=== PATIENT | female | born 1960 | race Caucasian/White ===

== ENCOUNTER 2017-08-07 11:20 | Emergency (ER) | payer MEDICAID ==
[2017-08-07 11:42] VITALS: BP 155/80
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
== END 2017-08-07 13:25 | disposition home or self-care (01) ==
LOC: JD.ED 11:20
DX: M50.90 Cervical disc disorder, unspecified, unspecified cervical region (principal); F32.9 Major depressive disorder, single episode, unspecified; F41.9 Anxiety disorder, unspecified; F43.10 Post-traumatic stress disorder, unspecified; Z87.891 Personal history of nicotine dependence; Z79.899 Other long term (current) drug therapy
CPT/HCPCS: 93005; 99284; 99284-25

== ENCOUNTER 2017-11-25 18:15 | Emergency (ER) | payer MEDICAID ==
[2017-11-25 18:23] VITALS: BP 135/77
[2017-11-25] MEDS ORDERED: HYDROmorphone 0.5 MG/0.5 ML SYRINGE IVPUSH ONE (18:41)
[2017-11-25] MEDS ORDERED: Sodium Chloride 0.9% 10 ML Syringe FLUSH PRN (18:41)
[2017-11-25] MEDS ORDERED: Sodium Chloride 0.9% 1,000 ML IV ONE (18:41)
[2017-11-25] MEDS ORDERED: Ondansetron 4 MG/2 ML SDV IVPUSH ONE (18:41)
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
--- NOTE | 2017-11-26 09:27 | CT ---
CT abdomen and pelvis Technique: Multiple axial sections were obtained from above the kidneys inferiorly through the pubic symphysis. Intravenous nor oral contrast not utilized. Study has been performed as a ureteral stone protocol. Comparison: No prior CT abdomen or pelvis exam is available. Findings: Mild scarring seen within the right kidney. Cortical calcification seen within the right kidney. Cortical calcification possibly nonobstructing stone is noted within the left kidney measuring 5 mm. No ureteral dilatation or ureteral stone is seen. Visualized lower portions of the noncontrast liver appear unremarkable. Increased density within the gallbladder is seen. Spleen appears within normal limits. Adrenal glands show no nodule. Pancreas is within normal limits. Aorta shows atherosclerotic change which continues into the iliac vessels. No retroperitoneal adenopathy is seen. Appendix is seen which is normal. No pelvic mass or adenopathy is seen. No free fluid or inflammatory change is seen. Bone window settings were reviewed which appear within normal limits for the patient's age. Small fat-containing umbilical hernia is noted. Impression: 1. Slight scarring within the right kidney with cortical calcification. Small 5 mm calcification either representing cortical calcification or nonobstructing stone within the left kidney. 2. No ureteral dilatation or ureteral stone is seen. 3. Increased density within the gallbladder either due to sludge or non-calcified gallstones. 4. Other incidental findings. Nothing acute is appreciated. Diagnostic code #2 I agree with preliminary report from [facility], finalized at 11/25/17, 9:17 PM Central Time
== END 2017-11-25 21:30 | disposition home or self-care (01) ==
LOC: JD.ED 18:15
DX: K52.9 Noninfective gastroenteritis and colitis, unspecified (principal); I10 Essential (primary) hypertension; F41.9 Anxiety disorder, unspecified; F32.9 Major depressive disorder, single episode, unspecified; Z79.899 Other long term (current) drug therapy
CPT/HCPCS: 74176; 96361; 96374; 96375; 99284; J1170; J2405; J7040; J7050

== ENCOUNTER 2022-06-03 23:58 | Observation (INO) | payer MEDICARE, MEDICAID ==
[2022-06-04] MEDS ORDERED: Tamsulosin 0.4 MG Cap.ER PO STA (00:14)
[2022-06-04] MEDS ORDERED: Ondansetron 4 MG/2 ML SDV IVPUSH ONE (00:14)
[2022-06-04] MEDS ORDERED: HYDROmorphone 1 MG/ML Syringe IVPUSH STA (00:14)
[2022-06-04] MEDS ORDERED: Ketorolac 15 MG/ML SDV IVPUSH ONE (00:17)
[2022-06-04] MEDS: Sodium Chloride 0.9% 1,000 ML IV SCH ×2 (00:25→17:48)
[2022-06-04] MEDS ORDERED: Sodium Chloride 0.9% 1,000 ML IV ONE (01:25)
[2022-06-04] MEDS ORDERED: cefTRIAXone 2 GM in Sodium Chloride 0.9% 100 ML IV ONE (01:28)
[2022-06-04] MEDS: HYDROmorphone 1 MG/ML Syringe IVPUSH PRN ×2 (03:12→08:34)
[2022-06-04] MEDS ORDERED: Aluminum Hydroxide/Magnesium Hydroxide/Simethicone Susp 30 ML Cup PO PRN (03:19)
[2022-06-04] MEDS ORDERED: Ondansetron 4 MG/2 ML SDV IVPUSH PRN (04:15)
[2022-06-04] MEDS: Dextrose 5%-0.9% NaCl 1,000 ML IV SCH ×2 (04:31→11:13)
[2022-06-04 06:04] LABS: ESTIMATED GFR 64 mL/min (>60)
[2022-06-04] MEDS ORDERED: diphenhydrAMINE 25 MG Cap PO ONE (08:00)
[2022-06-04] MEDS: Pantoprazole 40 MG Vial IVPUSH SCH ×2 (08:26→20:43)
[2022-06-04] MEDS: Enoxaparin 40 MG/0.4 ML Syringe SUBCUT SCH (08:26)
[2022-06-04] MEDS ORDERED: buPROPion 300 MG Tab.ER PO SCH (09:00)
[2022-06-04] MEDS: cefTRIAXone 1 GM in Sodium Chloride 0.9% 100 ML IV SCH (14:15)
[2022-06-04] MEDS ORDERED: Cyclobenzaprine 10 MG Tab PO PRN (14:35)
[2022-06-04] MEDS: Oxybutynin 5 MG Tab.ER PO SCH (14:51)
[2022-06-05] MEDS: Sodium Chloride 0.9% 1,000 ML IV SCH (01:50)
[2022-06-05] MEDS: cefTRIAXone 1 GM in Sodium Chloride 0.9% 100 ML IV SCH (01:51)
[2022-06-05] MEDS ORDERED: Acetaminophen 325 MG Tab PO PRN (02:08)
[2022-06-05] MEDS: Pantoprazole 40 MG Vial IVPUSH SCH (08:40)
[2022-06-05] MEDS: Oxybutynin 5 MG Tab.ER PO SCH (08:41)
[2022-06-05] MEDS: Enoxaparin 40 MG/0.4 ML Syringe SUBCUT SCH (08:41)
[2022-06-05] MEDS ORDERED: BUPROPION 300 MG PO SCH (09:00)
[2022-06-05] MEDS ORDERED: Lisinopril 20 MG Tab PO SCH (09:00)
[2022-06-05 09:27] VITALS: BP 153/88; PULSE 85
== END 2022-06-05 11:42 | disposition home or self-care (01) ==
LOC: JD.ED 23:58 → JD.MS 06-04 02:03
PROVIDERS: ADMIT Pediatrics; ATTEND Pediatrics
DX: N12 Tubulo-interstitial nephritis, not specified as acute or chronic (principal); N39.0 Urinary tract infection, site not specified; F41.9 Anxiety disorder, unspecified; F32.89 Other specified depressive episodes; F43.10 Post-traumatic stress disorder, unspecified; M54.2 Cervicalgia; M54.9 Dorsalgia, unspecified; G89.29 Other chronic pain; R10.9 Unspecified abdominal pain; K80.20 Calculus of gallbladder without cholecystitis without obstruction; I10 Essential (primary) hypertension; R11.2 Nausea with vomiting, unspecified; K57.30 Diverticulosis of large intestine without perforation or abscess without bleeding; K42.9 Umbilical hernia without obstruction or gangrene; K43.9 Ventral hernia without obstruction or gangrene; M47.819 Spondylosis without myelopathy or radiculopathy, site unspecified; Z79.899 Other long term (current) drug therapy; Z98.890 Other specified postprocedural states; Z87.891 Personal history of nicotine dependence; Z86.16 Personal history of COVID-19
CPT/HCPCS: 36415; 74176; 80048; 80053; 80076; 81001; 83735; 85007; 85025; 85027; 87086; 87088; 87186; 96361; 96365; 96375; 99285; A9270; C9113; J0696; J1170; J1650; J1885; J2405; J7030; J7042

== ENCOUNTER 2023-02-26 14:46 | Emergency (ER) | payer MEDICARE, MEDICAID ==
[2023-02-26] MEDS ORDERED: Ondansetron 4 MG/2 ML SDV IVPUSH ONE (14:58)
[2023-02-26] MEDS ORDERED: HYDROmorphone 0.5 MG/0.5 ML Syringe IVPUSH ONE (14:58)
[2023-02-26] MEDS ORDERED: Sodium Chloride 0.9% 1,000 ML IV SCH (15:00)
[2023-02-26 15:14] LABS: BASOPHILS ABSOLUTE AUTO 0.1 K/mm3 (0.0-0.2); BASOPHILS PERCENT AUTO 1.2 % (0.0-1.0); EOSINOPHILS ABSOLUTE AUTO 0.4 K/mm3 (0.0-0.4); EOSINOPHILS PERCENT AUTO 3.2 % (0.0-6.0); HEMATOCRIT 51.9 % (37.0-47.0); HEMOGLOBIN 17.1 gm/dl (12.0-16.0); IMMATURE GRAN ABSOLUTE AUTO 0.05 K/mm3 (0.00-0.05); IMMATURE GRAN PERCENT AUTO 0.4 % (0.0-0.4); LYMPHOCYTES ABSOLUTE AUTO 1.3 K/mm3 (1.0-4.8); LYMPHOCYTES PERCENT AUTO 10.7 % (24.0-44.0); MEAN CORPUSCULAR HEMOGLOBIN 30.1 pg (28.0-32.0); MEAN CORPUSCULAR HGB CONC 32.9 g/dl (32.0-36.0); MEAN CORPUSCULAR VOLUME 91.2 fl (83.0-99.0); MEAN PLATELET VOLUME 9.7 fl (9.4-12.3); MONOCYTES ABSOLUTE AUTO 0.7 K/mm3 (0.0-0.8); MONOCYTES PERCENT AUTO 5.9 % (0.0-8.0); NEUTROPHILS ABSOLUTE AUTO 9.5 K/mm3 (1.8-7.7); NEUTROPHILS PERCENT AUTO 78.6 % (41.0-71.0); PLATELET COUNT,PLT 630 K/mm3 (150-400); RED BLOOD CELL COUNT 5.69 M/mm3 (4.10-5.30); WHITE BLOOD CELL COUNT,WBC 12.11 K/mm3 (3.9-11.3)
[2023-02-26 15:36] LABS: A/G RATIO 1.6 (1-2); ALBUMIN 4.8 g/dl (3.4-5.0); ANION GAP 14.8 (5-15); BILIRUBIN TOTAL 0.4 mg/dL (0.2-1.0); CREATININE 1.2 mg/dL (0.55-1.02); EST CRCL DRUG DOSING (CG) 41.44 mL/min; POTASSIUM,K 3.8 mEq/L (3.5-5.1); PROTEIN TOTAL,TP 7.9 g/dl (6.4-8.2)
[2023-02-26 15:45] LABS: CALCIUM 9.5 mg/dL (8.5-10.1)
[2023-02-26 16:39] LABS: APPEARANCE,URINE SLT CLOUDY (Clear); BILIRUBIN,URINE NEGATIVE (Negative); COLOR,URINE YELLOW (Yellow); GLUCOSE,URINE NEGATIVE (Negative); KETONES,URINE TRACE (Negative); LEUKOCYTE ESTERASE,URINE 1+ (Negative); NITRITE,URINE POSITIVE (Negative); OCCULT BLOOD,URINE NEGATIVE (Negative); PROTEIN,URINE NEGATIVE (Negative); UROBILINOGEN,URINE 0.2 (0.2-1.0)
[2023-02-26 16:43] LABS: RBC,URINE 0-5 /hpf (0-5)
[2023-02-26 16:44] LABS: BACTERIA,URINE MODERATE /hpf (FEW); MUCUS,URINE FEW /hpf (FEW); SQUAMOUS EPITHELIAL CELLS,UR 20-30 /hpf (0-5); WBC,URINE 30-40 /hpf (0-5)
[2023-02-26 18:14] VITALS: BP 105/88; PULSE 92
== END 2023-02-26 17:37 | disposition home or self-care (01) ==
LOC: JD.ED 14:46
DX: N39.0 Urinary tract infection, site not specified (principal); I10 Essential (primary) hypertension; Z86.16 Personal history of COVID-19; Z79.899 Other long term (current) drug therapy
CPT/HCPCS: 36415; 74176; 80053; 81001; 85025; 86140; 87086; 87088; 87186; 96361; 96374; 96375; 99284; J1170; J2405; J7030